=== PATIENT | female | born 1995 | race African-American/Black ===

== ENCOUNTER 2022-11-30 10:16 | Emergency (ER) | payer OTHER ==
[~2022-11-30] VITALS: Ht 160 cm; Wt 93.0 kg
[2022-11-30] MEDS ORDERED: FOLIC ACID0.4 MG (10:25)
== END 2022-11-30 14:29 | disposition home or self-care (01) ==
LOC: ER 10:16
PROVIDERS: General Practice
DX: O20.9 Hemorrhage in early pregnancy, unspecified (principal); Z3A.01 Less than 8 weeks gestation of pregnancy

== ENCOUNTER 2023-04-29 10:04 | Outpatient (CLI) | payer OTHER ==
[~2023-04-29 10:04] MED LIST: FOLIC ACID0.4 MG
== END 2023-04-29 10:44 | disposition home or self-care (01) ==
LOC: NST 10:04
PROVIDERS: ATTEND Obstetrics & Gynecology
DX: Z34.83 Encounter for supervision of other normal pregnancy, third trimester (principal)

== ENCOUNTER 2023-06-17 13:16 | Outpatient (CLI) | payer OTHER | END 2023-06-17 13:35 | disposition home or self-care (01) | LOC: NST 13:16 | PROVIDERS: ATTEND Obstetrics & Gynecology Gynecology | DX: Z34.83 Encounter for supervision of other normal pregnancy, third trimester (principal) ==

== ENCOUNTER → 2023-07-05 11:42 | Outpatient (CLI) | payer OTHER | END | disposition home or self-care (01) | LOC: NST 11:42 | PROVIDERS: ATTEND Obstetrics & Gynecology Gynecology | DX: Z34.83 Encounter for supervision of other normal pregnancy, third trimester (principal) ==

== ENCOUNTER 2023-07-06 13:44 | Outpatient (CLI) | payer OTHER | END 2023-07-06 18:14 | disposition home or self-care (01) | LOC: NST 13:44 | PROVIDERS: ATTEND Obstetrics & Gynecology Gynecology | DX: Z34.83 Encounter for supervision of other normal pregnancy, third trimester (principal) ==

== ENCOUNTER 2023-07-06 18:19 | Inpatient (IN) | payer OTHER ==
[~2023-07-06] VITALS: Ht 160 cm; Wt 3.6 kg
[2023-07-06] MEDS ORDERED: RINGERS SOLUTION,LACTATED 1,000 ML IV SCH (18:30)
[2023-07-06 19:39] LABS: HEMATOCRIT 33.1 % (36.0-45.00); HEMOGLOBIN 11.1 g/dL (12.0-15.00); MEAN CELL VOLUME 80.5 fL (80.00-100.00); MEAN CORPUSCULAR HGB CONC 33.5 g/dl (32.0-36.0); PLATELET COUNT 214 K/uL (150-450); RED BLOOD COUNT 4.12 M/uL (4.00-6.00); RED CELL DISTRIBUTION WIDTH 13.5 % (11.5-14.5)
[2023-07-06 20:03] LABS: INR < 0.93; PARTIAL THROMBOPLASTIN TIME 22.3 SECONDS (22.0-34.0); PROTHROMBIN TIME 9.5 SECONDS (9.0-11.5)
[2023-07-06 20:12] LABS: ALBUMIN 2.8 gm/dL (3.4-5.0); BILIRUBIN TOTAL 0.28 mg/dL (0.3-1.2); CREATININE SERUM 0.56 mg/dL (0.55-1.02); GFR 127.11; GLOBULINA 3.4 G/DL (2.4-3.5); POTASSIUM 4.18 mEq/L (3.5-5.1); TOTAL PROTEIN 6.2 gm/dL (6.4-8.2)
[2023-07-07] MEDS ORDERED: OXYTOCIN 20 UNITS/500ML RL PIGGYBAG IV ONE (04:25)
[2023-07-07] MEDS ORDERED: OXYTOCIN 500 ML IV ONE (04:30)
[2023-07-07] MEDS ORDERED: OXYTOCIN 10 UNITS/ML VIAL ONE (14:25)
[2023-07-07] MEDS ORDERED: ERYTHROMYCIN BASE 3.5 GM OINT...G. OP ONE (14:25)
[2023-07-07] MEDS ORDERED: CEFAZOLIN SODIUM 1,000 MG VIAL IV ONE ×2 (14:45→22:15)
[2023-07-07] MEDS ORDERED: CEFAZOLIN SODIUM 1,000 MG VIAL ONE ×2 (15:31→18:50)
[2023-07-07 17:46] LABS: ABG pCO2 57.2 mmHg (35-45)
[2023-07-07 17:47] LABS: ABG PO2 19.3 mmHg (80-100); BICARBONATE 23.4 mmol/l (23-25); SaO2 20.6 %; Tco2 25.2 mmol/l; o2 21 %
[2023-07-07] MEDS ORDERED: MORPHINE SULFATE 4 MG/ML CARTRIDGE IV SCH (18:17)
[2023-07-07] MEDS ORDERED: KETOROLAC TROMETHAMINE 30 MG VIAL IV SCH (18:18)
[2023-07-07] MEDS ORDERED: KETOROLAC TROMETHAMINE 30 MG VIAL ONE (18:36)
[2023-07-07] MEDS ORDERED: ONDANSETRON HCL 2 MG/ML VIAL ONE (19:30)
[2023-07-07] MEDS ORDERED: OXYTOCIN 10 UNITS/ML VIAL IV ONE (22:00)
[2023-07-07] MEDS ORDERED: ERYTHROMYCIN BASE 1 GM TUBE OP ONE (22:15)
[2023-07-08] MEDS ORDERED: ACETAMINOPHEN 500 MG GEL..CAP PO SCH (06:00)
[2023-07-08 06:18] LABS: HEMATOCRIT 29.3 % (36.0-45.00); HEMOGLOBIN 9.8 g/dL (12.0-15.00); MEAN CELL VOLUME 80.3 fL (80.00-100.00); MEAN CORPUSCULAR HEMOGLOBIN 26.8 pg (27.00-32.0); MEAN CORPUSCULAR HGB CONC 33.4 g/dl (32.0-36.0); PLATELET COUNT 200 K/uL (150-450); RED BLOOD COUNT 3.65 M/uL (4.00-6.00); RED CELL DISTRIBUTION WIDTH 13.9 % (11.5-14.5)
[2023-07-08] MEDS ORDERED: PNV,CALCIUM 72/IRON/FOLIC ACID 1 TAB TABLET PO SCH (09:00)
[2023-07-08] MEDS ORDERED: GABAPENTIN 300 MG CAPSULE PO SCH (09:00)
[2023-07-08] MEDS ORDERED: SIMETHICONE 125 MG CAPSULE PO SCH (09:00)
[2023-07-08] MEDS ORDERED: DOCUSATE SODIUM 100MG CAP PO SCH (09:00)
[2023-07-08] MEDS ORDERED: IBUprofen 600 MG TABLET PO SCH (12:00)
[2023-07-09] MEDS ORDERED: IRON FUM,PS/FOLIC/BCOMP,C NO.9 1 CAP CAPSULE PO SCH (09:00)
== END 2023-07-10 13:01 | disposition home or self-care (01) | DRG 788 ==
LOC: OB/GYN 18:19 → LDR 18:19 → OB/GYN 07-07 10:24
PROVIDERS: Obstetrics & Gynecology Gynecology; ADMIT Obstetrics & Gynecology; ATTEND Obstetrics & Gynecology
PROC: 4A1HXCZ Monitoring of Products of Conception, Cardiac Rate, External Approach (ICD-10-PCS; 2023-07-06)
PROC: 10D00Z1 Extraction of Products of Conception, Low, Open Approach (ICD-10-PCS; principal; 2023-07-07 14:00)
DX: O82 Encounter for cesarean delivery without indication (principal); Z3A.38 38 weeks gestation of pregnancy; Z37.0 Single live birth; Z20.822 Contact with and (suspected) exposure to COVID-19